=== PATIENT | female | born 1945 | race Two or more races ===

== ENCOUNTER → 2018-07-20 | Outpatient (CLI) | payer MEDICARE, BC | END | disposition home or self-care (01) | LOC: ROC 08:26 | PROVIDERS: ATTEND Radiology Radiation Oncology | DX: Z08 Encounter for follow-up examination after completed treatment for malignant neoplasm (principal); Z85.528 Personal history of other malignant neoplasm of kidney; Z90.5 Acquired absence of kidney | CPT/HCPCS: G0463 ==